=== PATIENT | female | born 1945 | race Two or more races ===

== ENCOUNTER 2017-04-17 06:21 | Day surgery (SDC) | payer MEDICAID ==
[~2017-04-17] VITALS: Ht 160 cm; Wt 99.8 kg
[2017-04-17] MEDS ORDERED: ROSU10TA PO (07:26)
[2017-04-17] MEDS ORDERED: METF750T PO (07:26)
[2017-04-17] MEDS ORDERED: LIDOCAINE 2% 100 MG/5 ML UJET TP ONE (07:29)
== END 2017-04-17 09:00 | disposition home or self-care (01) ==
LOC: MDS 06:21 → MMU 06:33 → MDS 09:00
PROVIDERS: ATTEND Internal Medicine Gastroenterology
DX: K62.1 Rectal polyp (principal); K63.5 Polyp of colon; K57.30 Diverticulosis of large intestine without perforation or abscess without bleeding; Z98.890 Other specified postprocedural states; F17.210 Nicotine dependence, cigarettes, uncomplicated; E66.9 Obesity, unspecified; Z79.899 Other long term (current) drug therapy
CPT/HCPCS: 88305